=== PATIENT | male | born 1945 ===

== ENCOUNTER 2018-12-31 09:49 | Emergency (ER) | payer OTHER ==
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
[2018-12-31 10:17] LABS: PLATELET COUNT, AUTOMATED 257 K/uL (150-450)
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
[2018-12-31 10:34] LABS: INR 1.76
[2018-12-31] MEDS ORDERED: IOPAMIDOL 76% 100 ML INFUS BTL 100 ML ONE (10:50)
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
[2018-12-31 11:30] VITALS: BP 141/95
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
== END 2018-12-31 13:26 | disposition home or self-care (01) ==
LOC: ER 10:07
DX: S22.43XA Multiple fractures of ribs, bilateral, initial encounter for closed fracture (principal); V43.54XA Car driver injured in collision with van in traffic accident, initial encounter; F17.210 Nicotine dependence, cigarettes, uncomplicated
CPT/HCPCS: 70450; 71046; 71260; 72125; 74177; 83690; 85025; 85610; 93005; 99285; Q9967; 82040; 82247; 82310; 82374; 82435; 82565; 82947; 84075; 84132; 84155; 84295; 84450; 84460; 84520

== ENCOUNTER → 2018-12-31 | Outpatient (CLI) | payer OTHER | LOC: AMB 09:03 | PROVIDERS: ATTEND Nurse Practitioner | DX: R07.89 Other chest pain (principal); S00.81XA Abrasion of other part of head, initial encounter; V53.5XXA Driver of pick-up truck or van injured in collision with car, pick-up truck or van in traffic accident, initial encounter; M79.662 Pain in left lower leg | CPT/HCPCS: A0425; A0427 ==